=== PATIENT | male | born 1990 | race Caucasian/White ===

== ENCOUNTER → 2018-11-21 16:46 | Outpatient (CLI) | payer OTHER, SELFPAY ==
--- NOTE | 2018-11-21 16:51 | CT_ITS ---
STUDY: CT ABDOMEN WITH CONTRAST REASON FOR EXAM: Male, 28 years old. Pain RADIATION DOSAGE (If Supplied By Facility): CTDIvol = ( 17.07 ) mGy, DLP = ( 1016.62 ) mGycm TECHNIQUE: Transaxial images were obtained post I.V. administration of 100 IV/Oral Isovue 300, and with oral contrast. Sagittal and coronal images were reconstructed. Individualized dose optimization techniques were used for this CT. COMPARISON: None. FINDINGS: The visualized lung bases are unremarkable. The visualized portions of the heart are within normal limits. Normal liver. Normal gallbladder and extrahepatic biliary system. Normal spleen. Normal pancreas. Normal bilateral adrenal glands. Normal right kidney. Normal left kidney. Normal visualized stomach. Normal small intestine. Normal colon. The appendix is visualized and appears normal. Normal abdominal aorta. Normal inferior vena cava. Normal retroperitoneum. There is a fat-containing binu-umbilical hernia with a sac measuring 2.6 cm and a neck measuring 2.3 cm. There is mild edema within it. Normal osseous structures. CT/Abdomen WITH IV Contrast IMPRESSION: Fat-containing periumbilical hernia, with mild edema. Otherwise, unremarkable examination. Electronically Signed: Jose Aguirre, at 21:53 EDT Tel , Service support ,
== END ==
LOC: CT 16:50
PROVIDERS: Family Provider Family Medicine; PCP Family Medicine; Referring Provider Family Medicine; Visit Provider Family Medicine
DX: R10.9 Unspecified abdominal pain (principal)
CPT/HCPCS: 74160; Q9967

== ENCOUNTER → 2024-10-19 | Outpatient (CLI) | payer BC, SELFPAY ==
--- NOTE | 2024-10-19 11:48 | RAD_ITS ---
PROCEDURE: ANKLE MIN 3 VIEWS 10/19/2024 REASON FOR EXAM: LEFT FOOT PAIN. [place] a pop posterior ankle and heel pain for 3 weeks. TECHNIQUE: ANKLE MIN 3 VIEWS Laterality: Left COMPARISON: None. FINDINGS: BONES: No acute fracture or suspicious osseous lesion. Small plantar calcaneal spur. JOINTS: No dislocation. The joint spaces are normal. SOFT TISSUES: The soft tissues are unremarkable. RAD/Ankle min 3 Views IMPRESSION: No acute osseous abnormality seen. Reading Location: [id number]
== END | disposition home or self-care (01) ==
LOC: MTRAD 11:47
PROVIDERS: PCP Family Medicine; Referring Provider Family Medicine; Visit Provider Family Medicine
DX: M79.672 Pain in left foot (principal)
CPT/HCPCS: 73610